=== PATIENT | male | born 1940 | race Caucasian/White ===

== ENCOUNTER 2016-06-04 14:28 | Emergency (ER) | payer OTHER ==
--- NOTE | 2016-06-04 15:17 | EDPHY ---
H & P Stated Complaint: Urinary retention. Today body aches. Time Seen by Provider: 06/04/16 14:54 HPI/ROS: Chief Complaint: Difficulty urination, body aches, chills HPI: 76-year-old male with a history of BPH who is status post cystoscopy by Dr. Valdez 2 days ago. Patient has had worsening urinary frequency and urge to void today. Patient has also been having some body aches general chills and feels like he is getting a viral infection. Patient states that he has been getting up at least every hour to avoid overnight. He did initially have some burning with urination after the cystoscopy but this is getting better. No back pain. No nausea or vomiting. No cough chest pain shortness of breath. He does also have a history of IBS and micro colitis. He has been having frequent loose stools today which is his norm. He is awaiting a plan for a TURP but needs to be cleared by Cardiology 1st. He is concerned he has been unable to get an appoint with Cardiology until the beginning of June. ROS: 10 point Review of Systems is negative except as noted in the HPI. PMH: BPH IBS Micro colitis Sleep apnea CAD status post stenting x3 by Dr. Byrd 5 years ago. Had a normal catheterization by Dr. Hooks 3 years ago. Medications: Tamsulosin Valsartan Rosuvastatin Dicyclomine levocetrimine Allergies: No known drug allergies Social History: No smoking, occasional alcohol, occasional medical marijuana Family History: non-contributory Physical Exam: Gen: Awake, Alert, No Distress HEENT: Nose: no rhinorrhea Eyes: PERRLA, EOMI Mouth: Moist mucosa Neck: Supple, no JVD Chest: nontender, lungs clear to auscultation Heart: S1, S2 normal, no murmur Abd: Soft, bladder distension and tenderness to palpation, no guarding Back: no CVA tenderness, no midline tenderness Ext: no edema, non-tender Skin: no rash Neuro: CN II-XII intact, Sensation grossly intact, Strength 5/5 in bilateral upper and lower extremities - Personal History Current Tetanus/Diphtheria Vaccine: Yes Current Tetanus Diphtheria and Acellular Pertussis (TDAP): Yes Tetanus Vaccine Date: 2009 - Medical/Surgical History Hx Asthma: No Hx Chronic Respiratory Disease: No Hx Diabetes: No Hx Cardiac Disease: No Hx Renal Disease: No Hx Cirrhosis: No Hx Alcoholism: No Hx HIV/AIDS: No Hx Splenectomy or Spleen Trauma: No Other PMH: IBS, Stent x 2 - Social History Smoking Status: Former smoker Constitutional: Initial Vital Signs Temperature (C) 36.8 C 06/04/16 14:39 Heart Rate 77 06/04/16 14:39 Blood Pressure 148/78 H 06/04/16 14:39 O2 Sat (%) 96 06/04/16 14:39 O2 Delivery Mode Room Air Allergies/Adverse Reactions: latex [Latex] Allergy (Intermediate, Verified 08/23/11 17:11) Rash MOLDS Allergy (Mild, Uncoded 08/23/11 17:11) ITCHY EYS/SNEEZING Home Medications: Medication Instructions Recorded Aspirin [Aspirin 81mg (OTC)] 81 mg PO DAILY 08/23/11 Prasugrel HCl [Effient 10mg (RX)] 10 mg PO DAILY 08/23/11 Rosuvastatin Calcium [Crestor 20mg 20 mg PO DAILY 08/23/11 (RX)] Valsartan [Diovan 80MG (RX)] 80 mg PO DAILY 08/23/11 Cephalexin [Keflex (*)] 500 mg PO Q6H #28 cap 06/04/16 Medical Decision Making ED Course/Re-evaluation: Postvoid bladder scan is 315 mL. Awaiting UA results then will discuss with Urology. 1600 influenza negative. Urine consistent with UTI with 3+ leuk esterase, white cells, 4+ bacteria and no epithelial cells. Will discuss with Dr. Valdez. Message related to Dr. Valdez via the OR nurse. Dr. Valdez indicates that the patient has had a chronic urine infection in the past and has refused treatment. He states that he is happy for the patient to have a Lin catheter but is entirely up to the patient if he chooses this. I have discussed with Mr. preet castellano. He is consenting for a Lin catheter at this time. Will start him on some Keflex and instructed to follow up with Dr. Valdez early next week. - Data Points Laboratory Results: 06/04/16 06/04/16 15:10 15:10 Urine Color PALE YELLOW Urine Appearance CLEAR Urine pH 6.0 (5.0-7.5) Ur Specific [place] 1.003 (1.002-1.030) Urine Protein NEGATIVE (NEGATIVE) Urine Ketones NEGATIVE (NEGATIVE) Urine Blood 1+ H (NEGATIVE) Urine Nitrate NEGATIVE (NEGATIVE) Urine Bilirubin NEGATIVE (NEGATIVE) Urine Urobilinogen NEGATIVE EU EU (0.2-1.0) Ur Leukocyte Esterase 3+ H (NEGATIVE) Urine RBC 1-3 /hpf /hpf (0-3) Urine WBC 25-50 /hpf H /hpf (0-3) Ur Epithelial Cells NONE SEEN /lpf /lpf (NONE-1+) Urine Bacteria 4+ /hpf H /hpf (NONE SEEN) Ur Culture Indicated? INDICATED H (NI) Urine Glucose NEGATIVE (NEGATIVE) Influenza Typ A,B (DFA) NEGATIVE FOR FLU (NEGATIVE) Departure - Departure Disposition: Home, Routine, Self-Care Clinical Impression: Urinary tract infection, BPH (benign prostatic hyperplasia), Urinary retention Condition: Good Instructions: Urinary Tract Infection in Men (ED), Lin Catheter Placement and Care (ED), Benign Prostatic Hypertrophy (ED) Additional Instructions: Please take her full course of antibiotics. Follow up with Dr. Valdez early next week. Return to the emergency depart for increasing fevers or chills, nausea, vomiting , abdominal pain, or any other concerns. Referrals: Laureen Lehman MD [Primary Care Provider] - As per Instructions Prescriptions: Cephalexin [Keflex (*)] 500 mg PO Q6H #28 cap
[2016-06-04 15:30] LABS: COLOR PALE YELLOW; LEUKOCYTE ESTERASE,URINE 3+ (NEGATIVE); NITRITE,URINE NEGATIVE (NEGATIVE)
[2016-06-04 15:40] LABS: BACTERIA 4+ /hpf (NONE SEEN); WBC,URINE 25-50 /hpf (0-3)
[2016-06-04] MEDS ORDERED: LIDOCAINE 2% JELLY 20 ML (UROJECT) UR ONE (16:23)
[2016-06-04] MEDS ORDERED: CEPHALEXIN 500MG PREPACK#4 BTL TAKEHOME ONE (16:23)
[2016-06-04] MEDS ORDERED: LIDOCAINE 2% JELLY 20 ML (UROJECT) ONE (16:29)
[2016-06-04 17:04] VITALS: BP 141/77; PULSE 78; RESP 18; TEMP 98.6; O2SAT 97
== END 2016-06-04 17:30 | disposition home or self-care (01) ==
PROC: 0T9B70Z Drainage of Bladder with Drainage Device, Via Natural or Artificial Opening (ICD-10-PCS; principal; 2016-06-04)
DX: N39.0 Urinary tract infection, site not specified (principal); B96.89 Other specified bacterial agents as the cause of diseases classified elsewhere; N40.1 Benign prostatic hyperplasia with lower urinary tract symptoms; R33.9 Retention of urine, unspecified; I25.10 Atherosclerotic heart disease of native coronary artery without angina pectoris; Z79.82 Long term (current) use of aspirin; Z87.891 Personal history of nicotine dependence; Z91.040 Latex allergy status; Z95.5 Presence of coronary angioplasty implant and graft

== ENCOUNTER 2016-06-22 22:37 | Emergency (ER) | payer OTHER ==
[2016-06-22 22:45] VITALS: PULSE 61; RESP 18; TEMP 98.4
[2016-06-22] MEDS ORDERED: ONDANSETRON 4 MG/2 ML VIAL IVP ONE (23:10)
[2016-06-22] MEDS ORDERED: NS 500 ML IV ONE (23:10)
--- NOTE | 2016-06-22 23:14 | EDPHY ---
H & P Stated Complaint: RECTAL PAIN, PENIS PAIN S/P CATH PLACEMENT Source: Patient, Family, Old records Exam Limitations: No limitations - Personal History Current Tetanus/Diphtheria Vaccine: Yes Current Tetanus Diphtheria and Acellular Pertussis (TDAP): Yes Tetanus Vaccine Date: 2009 - Medical/Surgical History Hx Asthma: No Hx Chronic Respiratory Disease: No Hx Diabetes: No Hx Cardiac Disease: No Hx Renal Disease: No Hx Cirrhosis: No Hx Alcoholism: No Hx HIV/AIDS: No Hx Splenectomy or Spleen Trauma: No Other PMH: IBS, Stent x 2, BLOCKED BLADDER CATH PLACED - Social History Smoking Status: Former smoker HPI/ROS: CHIEF COMPLAINT: Rectal pain, Lin catheter discomfort HISTORY OF PRESENT ILLNESS: Patient has 2 primary complaints. The 1st is that his Lin catheter is bothering him. He was here on the 04 of June with urinary retention and treated with Lin catheter. This remains in place due to BPH. He is scheduled for TURP procedure with Dr. Valdez on the . Since discharge home, he has had difficulty with keeping the Lin catheter secured as the adhesive wore off. He is now using elastic band does not hold it well. Reports movement of the tube in pain with this. He also associated with some discomfort in the suprapubic region. No fever or chills. No flank pain. No nausea or vomiting. His 2nd complaint is rectal pain this is after multiple bowel movements over the past few days that he attributes to his IBS and micro colitis. He has no fever or chills. He has no generalized abdominal pain. No bloody stools or emesis. He does have a history of hemorrhoids and feels these are exacerbated due to the straining of the multiple bowel movements. No other associated complaints or modifying factors. REVIEW OF SYSTEMS: Ten systems reviewed and are negative unless otherwise noted in the HPI PERTINENT MEDICAL HISTORY: IBS, BPH, colitis EXAMINATION General Appearance: Alert, no distress Head: normocephalic, atraumatic Eyes: Pupils equal and round, no conjunctival pallor or injection ENT, Mouth: Mucous membranes moist. Uvula midline. Neck: Normal inspection, supple, non-tender Respiratory: Lungs are clear to auscultation. No wheezing, rhonchi or crackles. Cardiovascular: Regular rate and rhythm. No murmur. Gastrointestinal: Abdomen is soft. Mild tenderness in the suprapubic region. No tympany rigidity. No distention. No guarding. Nonacute abdomen. Rectal exam: Rectal exam reveals some irritation of the anus. There is 1 external hemorrhoid that is nonthrombosed and nonbleeding. No fissure. Neurological: GCS 15 A&O, nonfocal Skin: Warm and dry, no rash. No petechiae or purpura. Extremities: Nontender, no pedal edema Psychiatric: Mood and affect normal DIFFERENTIAL DIAGNOSES: Including but not limited to UTI, bladder spasm, Lin dysfunction, rectal pain , proctitis, hemorrhoids, colitis MDM: 11:12 p.m. Rectal pain from frequent bowel movements as well as some discomfort with his Lin catheter will irrigate the Lin catheter to ensure patency, bladder scanned and send urinalysis. Laboratory studies are also pending. After his pain is better controlled I will perform a rectal exam. He is in no acute distress vital signs stable. 12:08 a.m. Urinary tract infection that is very mild. No leukocytosis. No fever. Patient 's Lin bag is irritating him. I suspect this is due to the leg bag not adhering to his leg. We will irrigate and switch over to hang bag. Treat with Levaquin by mouth. His abdominal pain is completely resolved and his abdominal exam is benign. He has no laboratory abnormalities. He is comfortable with being discharged home at this time. I do feel he is stable to do so. We will continue treatment with Levaquin p.o.. Short course of pain medication as needed. He is to contact his urologist and GI physicians in the morning to discuss his ongoing care of the above complaints. He is to return to ER for any worsening of his symptoms or bloody stools. He and his spouse are comfortable with this plan and he will be discharged home in stable condition. SUPERVISION: This patient was independently evaluated without direct examination by the attending physician. Case was discussed with attending physician. Case discussed with Dr. Rogers. (Riley Dunn) Constitutional: Initial Vital Signs Temperature (C) 36.9 C 06/22/16 22:42 Heart Rate 61 06/22/16 22:42 Respiratory Rate 18 06/22/16 22:42 Blood Pressure 195/97 H 06/22/16 22:42 O2 Sat (%) 96 06/22/16 22:42 O2 Delivery Mode Room Air Allergies/Adverse Reactions: latex [Latex] Allergy (Intermediate, Verified 06/22/16 22:45) Rash MOLDS Allergy (Mild, Uncoded 06/22/16 22:45) ITCHY EYS/SNEEZING Home Medications: Medication Instructions Recorded Aspirin [Aspirin 81mg (OTC)] 81 mg PO DAILY 08/23/11 Prasugrel HCl [Effient 10mg (RX)] 10 mg PO DAILY 08/23/11 Rosuvastatin Calcium [Crestor 20mg 20 mg PO DAILY 08/23/11 (RX)] Valsartan [Diovan 80MG (RX)] 80 mg PO DAILY 08/23/11 Hydrocodone/APAP 5/325 [[place] 1 - 2 tab PO Q4H PRN #10 tab 06/23/16 5/325 (*)] levOFLOXACIN [Levaquin] 500 mg PO DAILY #6 tablet 06/23/16 Medical Decision Making Other Provider: PHYSICIAN DOCUMENTATION: The patient was evaluated and managed by the Physician [facility]. My co- signature indicates that I have reviewed this chart and I agree with the findings and plan of care as documented. I am the secondary supervising physician. (Kassandra Rogers) - Data Points Laboratory Results: Laboratory Results 06/22/16 23:20 06/22/16 23:20 06/22/16 06/22/16 06/22/16 23:25 23:20 23:20 WBC RBC Hgb Hct MCV MCH MCHC RDW Plt Count MPV Neut % (Auto) Lymph % (Auto) [place] % (Auto) Eos % (Auto) Baso % (Auto) Nucleat RBC Rel Count Absolute Neuts (auto) Absolute Lymphs (auto) Absolute Monos (auto) Absolute Eos (auto) Absolute Basos (auto) Absolute Nucleated RBC Immature Gran % Immature Gran # PT 12.9 SEC SEC (12.0-15.0) INR 0.98 (0.83-1.16) APTT 26.1 SEC SEC (23.0-38.0) Sodium 135 mEq/L mEq/L (134-144) Potassium 4.5 mEq/L mEq/L (3.5-5.2) Chloride 103 mEq/L mEq/L (97-110) Carbon Dioxide 23 mEq/l mEq/l (22-31) Anion Gap 9 mEq/L mEq/L (8-16) BUN 29 mg/dL H mg/dL (7-23) Creatinine 1.3 mg/dL mg/dL (0.7-1.3) Estimated GFR 54 Glucose 134 mg/dL H mg/dL (70-100) Calcium 9.1 mg/dL mg/dL (8.5-10.4) Total Bilirubin 0.5 mg/dL mg/dL (0.1-1.4) Conjugated Bilirubin 0.3 mg/dL mg/dL (0.0-0.5) Unconjugated Bilirubin 0.2 mg/dL mg/dL (0.0-1.1) AST 28 IU/L IU/L (17-59) ALT 54 IU/L IU/L (21-72) Alkaline Phosphatase 65 IU/L IU/L (38-126) Total Protein 6.9 g/dL g/dL (6.3-8.2) Albumin 4.2 g/dL g/dL (3.5-5.0) Lipase 68.0 IU/L IU/L (23-300) Urine Color YELLOW Urine Appearance HAZY Urine pH 5.0 (5.0-7.5) Ur Specific [place] 1.016 (1.002-1.030) Urine Protein 1+ H (NEGATIVE) Urine Ketones NEGATIVE (NEGATIVE) Urine Blood 3+ H (NEGATIVE) Urine Nitrate POSITIVE H (NEGATIVE) Urine Bilirubin NEGATIVE (NEGATIVE) Urine Urobilinogen NEGATIVE EU EU (0.2-1.0) Ur Leukocyte Esterase 3+ H (NEGATIVE) Urine RBC 50-182 /hpf H /hpf (0-3) Urine WBC 50-182 /hpf H /hpf (0-3) Ur Epithelial Cells TRACE /lpf /lpf (NONE-1+) Urine Bacteria 1+ /hpf H /hpf (NONE SEEN) Urine Mucus TRACE /lpf /lpf (NONE-1+) Urine Glucose NEGATIVE (NEGATIVE) 06/22/16 23:20 WBC 7.21 10^3/uL 10^3/uL (3.80-9.50) RBC 4.92 10^6/uL 10^6/uL (4.40-6.38) Hgb 15.9 g/dL g/dL (13.7-17.5) Hct 45.0 % % (40.0-51.0) MCV 91.5 fL fL (81.5-99.8) MCH 32.3 pg pg (27.9-34.1) MCHC 35.3 g/dL g/dL (32.4-36.7) RDW 13.2 % % (11.5-15.2) Plt Count 186 10^3/uL 10^3/uL (150-400) MPV 11.6 fL fL (8.7-11.7) Neut % (Auto) 66.0 % % (39.3-74.2) Lymph % (Auto) 21.9 % % (15.0-45.0) [place] % (Auto) 8.9 % % (4.5-13.0) Eos % (Auto) 2.2 % % (0.6-7.6) Baso % (Auto) 0.7 % % (0.3-1.7) Nucleat RBC Rel Count 0.0 % % (0.0-0.2) Absolute Neuts (auto) 4.76 10^3/uL 10^3/uL (1.70-6.50) Absolute Lymphs (auto) 1.58 10^3/uL 10^3/uL (1.00-3.00) Absolute Monos (auto) 0.64 10^3/uL 10^3/uL (0.30-0.80) Absolute Eos (auto) 0.16 10^3/uL 10^3/uL (0.03-0.40) Absolute Basos (auto) 0.05 10^3/uL 10^3/uL (0.02-0.10) Absolute Nucleated RBC 0.00 10^3/uL 10^3/uL (0-0.01) Immature Gran % 0.3 % % (0.0-1.1) Immature Gran # 0.02 10^3/uL 10^3/uL (0.00-0.10) PT INR APTT Sodium Potassium Chloride Carbon Dioxide Anion Gap BUN Creatinine Estimated GFR Glucose Calcium Total Bilirubin Conjugated Bilirubin Unconjugated Bilirubin AST ALT Alkaline Phosphatase Total Protein Albumin Lipase Urine Color Urine Appearance Urine pH Ur Specific [place] Urine Protein Urine Ketones Urine Blood Urine Nitrate Urine Bilirubin Urine Urobilinogen Ur Leukocyte Esterase Urine RBC Urine WBC Ur Epithelial Cells Urine Bacteria Urine Mucus Urine Glucose Medications Given: Discontinued Medications Sodium Chloride (Ns) 500 mls @ 0 mls/hr IV ONCE ONE PRN Reason: Wide Open Stop: 06/22/16 23:11 Last Admin: 06/22/16 23:45 Dose: 500 mls Levofloxacin (Levaquin) 750 mg PO EDNOW ONE PRN Reason: Protocol Stop: 06/22/16 23:51 Last Admin: 06/23/16 00:05 Dose: 750 mg Morphine Sulfate (Morphine) 4 mg IVP EDNOW ONE Stop: 06/22/16 23:11 Last Admin: 06/22/16 23:45 Dose: 4 mg Ondansetron HCl (Zofran) 4 mg IVP EDNOW ONE Stop: 06/22/16 23:11 Last Admin: 06/22/16 23:45 Dose: 4 mg Departure - Departure Disposition: Home, Routine, Self-Care Clinical Impression: UTI (urinary tract infection) Qualifiers: Urinary tract infection type: acute cystitis Hematuria presence: without hematuria Qualified Code(s): N30.00 - Acute cystitis without hematuria BPH (benign prostatic hyperplasia) Qualifiers: Prostatic enlargement morphology: unspecified morphology Lower urinary tract symptom presence: symptoms present Qualified Code(s): N40.1 - Benign prostatic hyperplasia with lower urinary tract symptoms Hemorrhoid Qualifiers: Hemorrhoid type: other Qualified Code(s): K64.8 - Other hemorrhoids IBS (irritable bowel syndrome) Qualifiers: Irritable bowel syndrome type: with diarrhea Qualified Code(s): K58.0 - Irritable bowel syndrome with diarrhea Condition: Good Instructions: Hemorrhoids (ED), Urinary Tract Infection in Men (ED), Lin Catheter Placement and Care (ED) Additional Instructions: Contact primary care physician, GI physician and neurologist for further care. Return to ER for worsening symptoms, fever, bloody stools or abdominal pain Referrals: Laureen Lehman MD [Primary Care Provider] - As per Instructions Donnie Valdez MD [Medical Doctor] - As per Instructions Krzysztof Mak MD [[facility] Primary Care Provider] - As per Instructions Prescriptions: Hydrocodone/APAP 5/325 [[place] 5/325 (*)] 1 - 2 tab PO Q4H PRN #10 tab PRN Reason: Pain, Moderate levOFLOXACIN [Levaquin] 500 mg PO DAILY #6 tablet
[2016-06-22 23:25] LABS: % IMMATURE GRANULYOCYTES 0.3 % (0.0-1.1); ABSOLUTE IMMATURE GRANULOCYTES 0.02 10^3/uL (0.00-0.10); ADD DIFF? NO; ADD MORPH? NO; ADD SCAN? NO; ATYPICAL LYMPHOCYTE FLAG 20 (0-99); FRAGMENT RBC FLAG 0 (0-99); HEMOGLOBIN 15.9 g/dL (13.7-17.5); LEFT SHIFT FLG 0 (0-99); LIPEMIA HEMOLYSIS FLAG 90 (0-99); MEAN CELL HEMOGLOBIN 32.3 pg (27.9-34.1); MEAN CELL HEMOGLOBIN CONCENTR. 35.3 g/dL (32.4-36.7); MEAN CELL VOLUME 91.5 fL (81.5-99.8); MEAN PLATELET VOLUME 11.6 fL (8.7-11.7); PLATELET CLUMPS FLAG 10 (0-99); PLATELET COUNT 186 10^3/uL (150-400); RED BLOOD CELL COUNT 4.92 10^6/uL (4.40-6.38); RED CELL DISTRIBUTION WIDTH 13.2 % (11.5-15.2)
[2016-06-22 23:35] LABS: COLOR YELLOW; LEUKOCYTE ESTERASE,URINE 3+ (NEGATIVE); NITRITE,URINE POSITIVE (NEGATIVE)
[2016-06-22 23:35] LABS: APTT 26.1 SEC (23.0-38.0); INR 0.98 (0.83-1.16); PROTIME(PATIENT) 12.9 SEC (12.0-15.0)
[2016-06-22 23:36] LABS: ALANINE AMINOTRANSFERASE 54 IU/L (21-72); ALBUMIN 4.2 g/dL (3.5-5.0); ALKALINE PHOSPHATASE 65 IU/L (38-126); ANION GAP 9 mEq/L (8-16); ASPARTATE AMINOTRANSFERASE 28 IU/L (17-59); BILIRUBIN,TOTAL 0.5 mg/dL (0.1-1.4); BILIRUBIN-CONJUGATED 0.3 mg/dL (0.0-0.5); BILIRUBIN-UNCONJUGATED 0.2 mg/dL (0.0-1.1); CALCIUM 9.1 mg/dL (8.5-10.4); CARBON DIOXIDE 23 mEq/l (22-31); CHLORIDE 103 mEq/L (97-110); CREATININE 1.3 mg/dL (0.7-1.3); GLOMERULAR FILTRATION RATE 54; GLUCOSE 134 mg/dL (70-100); POTASSIUM 4.5 mEq/L (3.5-5.2); SODIUM 135 mEq/L (134-144); TOTAL PROTEIN 6.9 g/dL (6.3-8.2)
[2016-06-22 23:39] LABS: BACTERIA 1+ /hpf (NONE SEEN); MUCUS TRACE /lpf (NONE-1+); RBC,URINE 50-182 /hpf (0-3); WBC,URINE 50-182 /hpf (0-3)
[2016-06-23 00:40] VITALS: BP 148/62; O2SAT 92
== END 2016-06-23 00:40 | disposition home or self-care (01) ==
DX: K64.8 Other hemorrhoids (principal); K58.0 Irritable bowel syndrome with diarrhea; N40.1 Benign prostatic hyperplasia with lower urinary tract symptoms; N30.00 Acute cystitis without hematuria; B96.1 Klebsiella pneumoniae [K. pneumoniae] as the cause of diseases classified elsewhere; Z95.5 Presence of coronary angioplasty implant and graft; Z87.891 Personal history of nicotine dependence; Z91.040 Latex allergy status; Z79.82 Long term (current) use of aspirin
CPT/HCPCS: 96374; 96375; 99284; J2405

== ENCOUNTER → 2017-01-16 | Outpatient (CLI) | payer OTHER | LOC: FCPNEURO 20:30 | PROVIDERS: ATTEND Psychiatry & Neurology Sleep Medicine | DX: G47.33 Obstructive sleep apnea (adult) (pediatric) (principal); G47.39 Other sleep apnea ==

== ENCOUNTER → 2017-02-24 | Outpatient (CLI) | payer OTHER | LOC: FCPNEURO 21:30 | PROVIDERS: ATTEND Psychiatry & Neurology Sleep Medicine | DX: G47.33 Obstructive sleep apnea (adult) (pediatric) (principal); G47.39 Other sleep apnea ==

== ENCOUNTER → 2017-04-28 | Outpatient (CLI) | payer OTHER ==
--- NOTE | 2017-04-28 13:25 | CPEEG ---
[f rep st] ELECTROENCEPHALOGRAM ELECTROENCEPHALOGRAM DATE OF STUDY: 04/28/2017 INTERPRETATION: Normal EEG during wakefulness and sleep. There were no potentially epileptogenic ab normalities present during recording. REPORT: This EEG contains 9 Hz alpha activity to the posterior head regions. There was no abnormal activation at rest, during hyperventilation, or photic stimulation. The patient became drowsy and fe ll asleep during the study. There was no abnormal activation during drowsiness, sleep, or during valente es of arousal. /[id number]/MODL
== END ==
LOC: FCPNEURO 10:59
PROVIDERS: ATTEND Psychiatry & Neurology Neurology
DX: R29.818 Other symptoms and signs involving the nervous system (principal)

== ENCOUNTER → 2017-05-09 | Outpatient (CLI) | payer OTHER ==
[~2017-05-09] MED LIST: GADOBUTROL 10 ML VIAL IVP ONE; IOPAMIDOL (ISOVUE 370) 100 ML BTL IV ONE
== END ==
LOC: FIMAGING 14:17
PROVIDERS: ATTEND Psychiatry & Neurology Neurology
DX: G31.9 Degenerative disease of nervous system, unspecified (principal); I77.1 Stricture of artery; M50.30 Other cervical disc degeneration, unspecified cervical region; M48.02 Spinal stenosis, cervical region
CPT/HCPCS: 70498; 70553; A9585; Q9967

== ENCOUNTER → 2017-08-24 | Outpatient (CLI) | payer OTHER | LOC: BMCIMAGING 09:22 | PROVIDERS: ATTEND Orthopaedic Surgery Hand Surgery | DX: M25.531 Pain in right wrist (principal) ==